=== PATIENT | male | born 2000 | race African-American/Black ===

== ENCOUNTER 2022-04-05 09:53 | Emergency (ER) | payer BC, OTHER ==
[~2022-04-05] VITALS: Ht 180.3 cm; Wt 69.9 kg
--- NOTE | 2022-04-05 10:10 | NUR ---
TO ER BED 11. BIB SELF C/O R ANKLE PAIN AND SWELLING STARTED YESTERDAY S/P GLF WHILE PLAYING BASKETBALL.
[2022-04-05] MEDS ORDERED: IBUP-1955 PO (12:10)
[2022-04-05 12:16] VITALS: BP 134/77
--- NOTE | 2022-04-05 12:16 | NUR ---
Patient discharged to home in stable condition. Written and verbal after care instructions given. Patient verbalizes understanding of instruction.
== END 2022-04-05 12:16 | disposition home or self-care (01) ==
LOC: ER 09:53
DX: S93.401A Sprain of unspecified ligament of right ankle, initial encounter (principal); X50.1XXA Overexertion from prolonged static or awkward postures, initial encounter; Y93.67 Activity, basketball; Y92.310 Basketball court as the place of occurrence of the external cause; Y99.8 Other external cause status
CPT/HCPCS: 73610-TC